=== PATIENT | male | born 1960 | race Caucasian/White ===

== ENCOUNTER 2018-04-23 09:45 | Emergency (ER) | payer OTHER ==
[2018-04-23] MEDS ORDERED: ACETAMINOPHEN 500 MG TAB PO ONE (09:57)
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
[2018-04-23 10:37] VITALS: BP 150/84
== END 2018-04-23 10:49 | disposition home or self-care (01) ==
LOC: EDUNIT#
DX: S50.01XA Contusion of right elbow, initial encounter (principal); S70.01XA Contusion of right hip, initial encounter; V03.10XA Pedestrian on foot injured in collision with car, pick-up truck or van in traffic accident, initial encounter; Y92.410 Unspecified street and highway as the place of occurrence of the external cause; Y93.9 Activity, unspecified